=== PATIENT | female | born 1980 | race Asian ===

== ENCOUNTER → 2022-12-18 | Emergency (ER) | payer BC, OTHER ==
[~2022-12-18] VITALS: Ht 154.9 cm; Wt 59.0 kg
[~2022-12-18] MED LIST: DULO60CA42 PO; METF-379 PO; MORP30TA PO; OPANA PO; OXYM10TA10 PO; TAPE100T PO
[2022-12-18 13:20] VITALS: BP_SYST 121
== END | disposition left against medical advice (07) ==
LOC: SED 12:30
DX: R53.1 Weakness (principal); R42 Dizziness and giddiness; R00.2 Palpitations; Z53.21 Procedure and treatment not carried out due to patient leaving prior to being seen by health care provider

== ENCOUNTER 2024-04-04 10:06 | Emergency (ER) | payer OTHER ==
[~2024-04-04] VITALS: Ht 154.9 cm; Wt 63.5 kg
[~2024-04-04 10:06] MED LIST changes: +BUPR1FIL SL; -DULO60CA42 PO; +FERR-31 PO; +IBUP-1970 PO; +MEDR5TAB PO; -METF-379 PO; +METF-381 PO; -MORP30TA PO; -OPANA PO; -OXYM10TA10 PO; +PRO40 PO; +SUCR1TAB2 PO; -TAPE100T PO
[2024-04-04 10:14] VITALS: BP_SYST 150; PULSE 98; RESP 18; TEMP 98.3; O2SAT 98
[2024-04-04] MEDS: KETOROLAC TROMETHAMINE 30 MG VIAL IM ONE (10:39)
[2024-04-04 11:00] LABS: BASOPHILS % (AUTO) 0.4 % (0.0-2.0); EOSINOPHILS # (AUTO) 0.2 K/uL (0.0-0.4); HEMATOCRIT 34.5 % (36-48); HEMOGLOBIN 10.3 g/dL (12.0-16.0); LYMPHOCYTES # (AUTO) 1.3 K/uL (1.0-5.5); LYMPHOCYTES % (AUTO) 22.4 % (20.5-51.5); MEAN CORPUSCULAR HEMOGLOBIN 21 pg (27-31); MEAN CORPUSCULAR HGB CONC 30 % (32-36); MEAN CORPUSCULAR VOLUME 72 fL (79.0-98.0); MONOCYTES # (AUTO) 0.3 K/uL (0.0-1.0); MONOCYTES % (AUTO) 5.3 % (1.7-9.3); NEUTROPHILS % (AUTO) 68.9 % (40.0-70.0); PLATELET COUNT (AUTO) 232 K/uL (130-430); RED BLOOD CELL COUNT(AUTO) 4.82 MIL/uL (4.2-6.2); RED CELL DISTRIBUTION WIDTH 19.5 % (9.0-15.0); WHITE BLOOD COUNT (AUTO) 5.8 K/uL (4.8-10.8)
[2024-04-04 11:26] LABS: CALCIUM 8.1 mg/dL (8.4-11.0); CREATININE 0.72 mg/dL (0.55-1.30); POTASSIUM 4.3 mmol/L (3.5-5.1)
[2024-04-04 11:36] LABS: ANISOCYTOSIS 1+; HELMET CELLS FEW; HYPOCHROMASIA SLIGHT; OVALOCYTES FEW; POLYCHROMASIA SLIGHT; TEAR DROP CELLS FEW
[2024-04-04] MEDS ORDERED: TIZA-321 PO (11:49)
[2024-04-04 12:04] VITALS: BP_SYST 150; PULSE 98; RESP 18; TEMP 98.3; O2SAT 98
[2024-04-09] MEDS ORDERED: HYDR-3917 PO (18:01)
[2024-04-09] MEDS ORDERED: MELO-89 PO (19:27)
== END 2024-04-04 12:03 | disposition home or self-care (01) ==
LOC: SED 10:06
DX: M79.661 Pain in right lower leg (principal); E11.9 Type 2 diabetes mellitus without complications; F32.A Depression, unspecified; Z91.040 Latex allergy status; Z79.899 Other long term (current) drug therapy; Z79.2 Long term (current) use of antibiotics
CPT/HCPCS: 99285; 93971; 80048; 85025; 36415; 96372; J1885

== ENCOUNTER → 2024-04-09 | Emergency (ER) | payer OTHER ==
[~2024-04-09] VITALS: Ht 154.9 cm; Wt 65.8 kg
[~2024-04-09] MED LIST changes: +HYDR-3917 PO; +MELO-89 PO; +TIZA-321 PO
[2024-04-09 17:08] VITALS: BP_SYST 136; PULSE 93; RESP 16; TEMP 96.9; O2SAT 98
[2024-04-09] MEDS: KETOROLAC TROMETHAMINE 30 MG VIAL IM ONE (18:28)
[2024-04-09 18:30] VITALS: BP_SYST 136; PULSE 93; RESP 16; TEMP 96.9; O2SAT 98
== END | disposition home or self-care (01) ==
LOC: SED 16:58
DX: M79.604 Pain in right leg (principal); E11.9 Type 2 diabetes mellitus without complications; F32.A Depression, unspecified; Z91.040 Latex allergy status; Z79.899 Other long term (current) drug therapy; Z79.2 Long term (current) use of antibiotics
CPT/HCPCS: 99283; 96372; J1885